=== PATIENT | male | born 1995 | race Hispanic/Latino ===

== ENCOUNTER → 2024-04-15 | Outpatient (CLI) | payer BC ==
--- NOTE | 2024-04-15 10:19 | HMCIMG ---
MR SPINAL CANAL, LUMBAR WO CON HISTORY: No additional history given. COMPARISON: None TECHNIQUE: MRI of the lumbar spine was performed utilizing multiple pulse sequences in axial , coronal and sagittal plane. Patient was not given contrast through intravenous route. FINDINGS: No abnormal signal intensity is seen of the visualized bony structure. No loss of vertebral height is seen. There is straightening of normal lumbar curvature which may be related to muscle spasm or positioning. Degenerative disc signals are present at L2-3 through L5-S1 levels. Visualized distal conus is unremarkable. At the L2-3 level, there is annular disc bulge with bilateral ligamentum flavum hypertrophy causing anterior thecal sac compression with bilateral lateral recess stenosis and without associated neural foraminal stenosis. The thecal sac measures approximately 7.8 mm in its anterior posterior dimension. At the L3-4 level, there is annular disc bulge with bilateral ligamentum flavum hypertrophy with annular tear causing anterior thecal sac compression with bilateral lateral recess stenosis and without associated neural foraminal stenosis. The thecal sac measures approximately 5.9 mm in its anterior posterior dimension. At the L4-5 level, there is central disc protrusion with herniation with bilateral ligamentum flavum hypertrophy causing anterior thecal sac compression with bilateral lateral recess stenosis and without associated neural foraminal stenosis. The thecal sac measures approximately 7.0 mm in its anterior posterior dimension. At the L5-S1 level, there is minimal annular disc bulge causing anterior thecal sac compression with bilateral lateral recess stenosis without associated neural foraminal stenosis. The thecal sac measures approximately 7.5 mm in its anterior posterior dimension. IMPRESSION: 1. DJD with lumbar spine spondylosis. There is central disc bulge with annular tear at L3-4 level. There is central disc protrusion with herniation at L4-5 level.
== END | disposition home or self-care (01) ==
LOC: RAH 09:03
PROVIDERS: ATTEND Family Medicine
DX: M47.26 Other spondylosis with radiculopathy, lumbar region (principal); M51.16 Intervertebral disc disorders with radiculopathy, lumbar region; M48.07 Spinal stenosis, lumbosacral region
CPT/HCPCS: 72148